=== PATIENT | male | born 1990 | race Caucasian/White ===

== ENCOUNTER 2017-03-28 09:47 | Emergency (ER) | payer OTHER ==
[~2017-03-28] VITALS: Ht 175.3 cm; Wt 97.5 kg
[2017-03-28 09:51] VITALS: BP_SYST 150
[2017-03-28 10:44] LABS: BILIRUBIN,URINE 1+ (NEGATIVE); BLOOD, URINE NEGATIVE (NEGATIVE); CLARITY/URINE CLEAR (CLEAR); COLOR,URINE YELLOW (YELLOW); GLUCOSE,URINE NEGATIVE (NEGATIVE); KETONES,URINE NEGATIVE (NEGATIVE); LEUKOCYTE ESTERASE ,URINE NEGATIVE (NEGATIVE); NITRITE, URINE NEGATIVE (NEGATIVE); PH,URINE 6.5 (5.0-8.0); PROTEIN URINE NEGATIVE (NEGATIVE); UROBILINOGEN,URINE 0.2 (0.2-1.0)
[2017-03-28 11:30] VITALS: BP_SYST 135
[2017-03-31 07:51] LABS: HSV 1 IgG, TYPE SPECIFIC <0.91 index (0.00-0.90); HSV 2 IgG, TYPE SPECIFIC <0.91 index (0.00-0.90)
[2017-03-31 15:13] LABS: CHLAMYDIA TRACHOMATIS NAA Negative (Negative); NEISSERIA GONORRHOEAE NAA Negative (Negative)
== END 2017-03-28 11:30 | disposition home or self-care (01) ==
LOC: SED 09:47
DX: B00.2 Herpesviral gingivostomatitis and pharyngotonsillitis (principal); B08.1 Molluscum contagiosum
CPT/HCPCS: 36415; 81003; 86403; 86592; 86694; 86695; 86696; 87081; 87491; 87591; 99284

== ENCOUNTER 2018-11-19 07:20 | Emergency (ER) | payer MEDICAID ==
[~2018-11-19] VITALS: Ht 175.3 cm; Wt 102.1 kg
[2018-11-19 07:20] VITALS: BP_SYST 149
--- NOTE | 2018-11-19 07:20 | NUR ---
BROUGHT BACK TO BED #7 AND TRIAGED. REPORT GIVEN TO WALTER
--- NOTE | 2018-11-19 07:34 | NUR ---
DR GUERRERO AT BEDSIDE FOR EVALUATION
--- NOTE | 2018-11-19 07:39 | NUR ---
Patient arrived via POV, AAOx4, and ambulatory with steady gait. Patient c/c of left lower back pain. Patient denies urinary symptoms, pain or burning, blood in urine. Patient states pain is worse with movement. Will continue to follow up and monitor.
[2018-11-19] MEDS ORDERED: KETOROLAC TROMETHAMINE 30 MG VIAL IM ONE (07:45)
[2018-11-19 08:06] LABS: BASOPHILS % (AUTO) 0.8 % (0.0-2.0); EOSINOPHILS # (AUTO) 0.1 K/uL (0.0-0.4); EOSINOPHILS % (AUTO) 3.1 % (0.0-4.0); HEMATOCRIT 45.5 % (36-54); HEMOGLOBIN 15.7 g/dL (14.0-18.0); LYMPHOCYTES # (AUTO) 1.5 K/uL (1.0-5.5); LYMPHOCYTES % (AUTO) 30.6 % (20.5-51.5); MEAN CORPUSCULAR HEMOGLOBIN 31 pg (27-31); MEAN CORPUSCULAR HGB CONC 35 % (32-36); MEAN CORPUSCULAR VOLUME 91 fL (79.0-98.0); MONOCYTES # (AUTO) 0.4 K/uL (0.0-1.0); MONOCYTES % (AUTO) 9.2 % (1.7-9.3); NEUTROPHILS # (AUTO) 2.7 K/uL (1.8-7.7); NEUTROPHILS % (AUTO) 56.3 % (40.0-70.0); PLATELET COUNT (AUTO) 224 K/uL (130-430); RED CELL DISTRIBUTION WIDTH 12.6 % (9.0-15.0); WHITE BLOOD COUNT (AUTO) 4.8 K/uL (4.8-10.8)
--- NOTE | 2018-11-19 08:06 | NUR ---
Patient taken to radiology. Escorted by XR tech. Will continue to follow up.
[2018-11-19 08:11] LABS: BILIRUBIN,URINE NEGATIVE (NEGATIVE); BLOOD, URINE NEGATIVE (NEGATIVE); CLARITY/URINE CLEAR (CLEAR); COLOR,URINE YELLOW (YELLOW); GLUCOSE,URINE NEGATIVE (NEGATIVE); KETONES,URINE NEGATIVE (NEGATIVE); LEUKOCYTE ESTERASE ,URINE NEGATIVE (NEGATIVE); NITRITE, URINE NEGATIVE (NEGATIVE); PH,URINE 6.5 (5.0-8.0); PROTEIN URINE NEGATIVE (NEGATIVE); UROBILINOGEN,URINE 0.2 (0.2-1.0)
--- NOTE | 2018-11-19 08:12 | NUR ---
Patient returned from radiology, patient tolerated exam well.
[2018-11-19 08:25] LABS: CALCIUM 9.5 mg/dL (8.4-11.0); CREATININE 0.97 mg/dL (0.55-1.30); POTASSIUM 4.3 mmol/L (3.5-5.1)
--- NOTE | 2018-11-19 08:28 | NUR ---
Patient resting comfortably, family at bedside. Will continue to follow up and monitor.
[2018-11-19 08:29] LABS: ALBUMIN 4.3 g/dL (3.4-4.8); TOTAL BILIRUBIN 0.6 mg/dL (0.0-1.0)
[2018-11-19 09:28] VITALS: BP_SYST 149
--- NOTE | 2018-11-19 09:28 | NUR ---
Patient given written and verbal discharge instructions and verbalizes understanding. ER MD discussed with patient the results and treatment provided. Patient in stable condition. ID arm band removed. Rx of Flexeril and Naprosyn given. Patient educated on pain management and to follow up with PMD. Pain Scale 3/10. Opportunity for questions provided and answered. Medication side effect fact sheet provided.
== END 2018-11-19 09:28 | disposition home or self-care (01) ==
LOC: SED 07:20
DX: M54.5 Low back pain (principal)
CPT/HCPCS: 36415; 74176; 80053; 81003; 83690; 85025; 96372; 99284; J1885